=== PATIENT | male | born 1970 | race Asian ===

== ENCOUNTER 2016-08-08 05:58 | Day surgery (SDC) | payer OTHER ==
[2016-08-05 15:07] VITALS: BMI 25.8
[2016-08-08] MEDS ORDERED: LIDOCAINE 1%/EPI 1:100000 (50 ML MULTI DOSE VIAL) ONE (08:41)
[2016-08-08] MEDS ORDERED: MIDAZOLAM HCL 2 MG/2 ML SINGLE DOSE VIAL ONE (09:04)
[2016-08-08] MEDS ORDERED: ROCURONIUM BROMIDE 50 MG/5 ML VIAL ONE (09:04)
[2016-08-08] MEDS ORDERED: PROPOFOL 20 ML ONE (09:04)
[2016-08-08] MEDS ORDERED: LIDOCAINE HCL/PF 2% SDV 5ML VIAL ONE (09:05)
[2016-08-08] MEDS ORDERED: DEXAMETHASONE SOD PHOSPHATE 4 MG/1 ML VIAL ONE (09:26)
[2016-08-08] MEDS ORDERED: ceFAZolin SODIUM 1 GM VIAL ONE (09:35)
[2016-08-08] MEDS ORDERED: NEOSTIGMINE METHYLSULFATE 0.5 MG/ML - 10 ML MDV ONE (10:14)
[2016-08-08] MEDS ORDERED: PHENYLEPHRINE HCL 10 MG/1 ML SINGLE DOSE VIAL ONE (10:14)
[2016-08-08] MEDS ORDERED: GLYCOPYRROLATE 0.2 MG/1 ML VIAL ONE (10:14)
[2016-08-08] MEDS ORDERED: MICROFIBRILLAR COLLAGEN 1 GM EACH ONE (10:15)
--- NOTE | 2016-08-08 10:50 | HP ---
History & Physical Update - History History: No Change - Physical Physical: No Change - Assessment Assessment: No Change - Plan Plan: No Change
--- NOTE | 2016-08-08 10:53 | SURG ---
Surgery Thermal Engineer Note Thermal Engineer: Luis F Carter PA-C Date of Service: 08/08/16 Diagnosis: Thyroglossal duct cyst and forehead mass Procedure: Excision of thyroglossal duct cyst and forehead mass I was present for the entirety of the operative procedure. For further detail, please refer to operative report. Visit type - Case Type Case Type: Scheduled Admission - New patient This patient is new to me today: Yes Date on this admission: 08/12/16
--- NOTE | 2016-08-08 10:53 | OP ---
Operative Note - Note: Operative Date: 08/08/16 Pre-Operative Diagnosis: Thyroglossal duct Cyst & right forehead mass Operation: Excission of thyroglossal duct cyst & forehead mass Post-Operative Diagnosis: Same as Pre-op Surgeon: Jacob Cervantes Architect Naval: Luis F Carter Anesthesiologist/DECAL APPLIER: Jorge Kumar Anesthesia: General Specimens Removed: Thyroglossal duct cyst and forehead mass Estimated Blood Loss (mls): 10 Fluid Volume Replaced (mls): 800 Operative Report Dictated: Yes
[2016-08-08] MEDS ORDERED: ACETAMINOPHEN INJECTION 100 ML IVPB ONE (11:17)
[2016-08-08] MEDS ORDERED: oxyCODONE HCL 5 MG TABLET ONE (13:57)
[2016-08-08 15:16] VITALS: BP 127/88; PULSE 90
--- NOTE | 2016-08-09 07:01 | OP ---
DATE OF OPERATION: 08/08/2016 SURGICAL ATTENDING: Rayne Vigil MD PREOPERATIVE DIAGNOSES: 1. Thyroglossal ductal cyst. 2. Right forehead mass. POSTOPERATIVE DIAGNOSES: 1. Thyroglossal ductal cyst. 2. Right forehead mass. ANESTHESIA: General endotracheal. PROCEDURE: 1. Excision of thyroglossal ductal cyst (cyst trunk) procedure. 2. Right forehead mass excision. 3. Neck ultrasound. DESCRIPTION OF PROCEDURE: The patient was taken into the operating room and placed in a supine position and endotracheally intubated. The eyes were protected. Neck ultrasound was performed showing a large cystic mass at the level of the hyoid bone. The thyroid lobes appeared normal, and there was no lymphadenopathy. The patient was then prepped and draped in the usual sterile fashion. Local anesthesia was administered. A horizontal incision was made in an upper neck skin crease and carried down through subcutaneous tissues and platysma. Subplatysmal flaps were raised superiorly and inferiorly, and flap hooks were placed for exposure. The median raphe was incised and the strap muscles lateralized. The cyst was immediately evident and circumscribed down to the level of the hyoid bone. It was attached to the hyoid bone and also extended under the hyoid bone. The hyoid bone was then clipped with a bone clipper bilaterally, and this was included in the specimen. The cyst was excised proximal to the hyoid bone as well but did not tract significantly up toward the base of the tongue. In this way, the specimen was removed and sent to Pathology. Hemostasis was achieved with electrocautery, and the wound was closed in 3 layers. Dermabond was placed. An elliptical incision was made around the prior scar from the right forehead mass. This was carried down through subcutaneous tissues. The mass was identified, and the submuscular area was circumscribed and removed. Hemostasis was achieved with electrocautery. The wound was closed in 2 layers. Sterile dressings and Dermabond were placed. The patient was then awakened, extubated, and taken to recovery in stable condition. Dr. Vigil, attending surgeon, was present throughout the entire procedure. RAYNE VIGIL M.D. [id number]
[2016-08-12 08:59] VITALS: TEMP 98.5
--- NOTE | 2016-08-12 14:01 | PATH ---
Surgical Pathology Report Patient Name: KANA DALE [facility]. Rec. #: [id number] /Age/Gender: 1970 (Age: 46) / M Account: [id number] Location: [facility] SURGICAL Taken: 08/08/2016 Received: 08/08/2016 Reported: 08/12/2016 Physicians: Jacob Cervantes M.D. Specimen(s) Received A: THYROGLOSSAL DUCT CYST B: RIGHT FOREHEAD MASS Clinical History Thyroglossal duct cyst, right forehead lipoma Final Diagnosis A. THYROGLOSSAL DUCT CYST, EXCISION: BENIGN CYST LINED BY CILIATED COLUMNAR EPITHELIAL CELLS AND SQUAMOUS CELLS CONSISTENT WITH THYROGLOSSAL DUCT CYST. CYST WALL SHOWS AREAS OF ACUTE AND CHRONIC INFLAMMATION WELL FOREIGN BODY REACTION. THE SURROUNDING SOFT TISSUE HAS BENIGN ADIPOSE TISSUE, SKELETAL MUSCLE, BONE, AND CARTILAGE. B. SKIN, RIGHT FOREHEAD, EXCISION: SKIN WITH FOCAL DERMAL FIBROSIS SUGGESTIVE OF SCAR, AND BENIGN ADIPOSE TISSUE WITH ADMIXED FIBROUS TISSUE CONSISTENT WITH FIBROLIPOMA. Comment: Also see [id number]. Electronically Signed Chandler Traore M.D. Gross Description A. Received in formalin labeled "thyroglossal duct cyst," is a 4.0 x 3.0 x 3.0 cm irregular, unoriented portion of red-brown soft tissue. Sectioning reveals an intact cyst containing a lopes liquid material. The specimen displays an attached portion of bone. Side Sawyer sections are submitted in 6 cassettes, with cassettes 2-3 following decalcification. B. Received in formalin labeled "right forehead mass and scar," is a 2.0 x 1.1 x 0.7 cm portion of yellow, lobulated adipose tissue. The specimen is partially surfaced by a 1.3 x 0.3 cm lopes, elliptical portion of skin with a possible scar. Sectioning reveals homogeneous yellow, smooth fat. Side Sawyer sections are submitted in one cassette. 08/08/201608/08/2016
== END 2016-08-08 15:10 | disposition home or self-care (01) ==
LOC: JASU-SURG 05:58
PROVIDERS: ATTEND Surgery
PROC: 0JQ10ZZ Repair Face Subcutaneous Tissue and Fascia, Open Approach (ICD-10-PCS; 2016-08-08)
PROC: 0JB10ZZ Excision of Face Subcutaneous Tissue and Fascia, Open Approach (ICD-10-PCS; 2016-08-08)
PROC: 0WB60ZX Excision of Neck, Open Approach, Diagnostic (ICD-10-PCS; principal; 2016-08-08 09:00)
DX: Q89.2 Congenital malformations of other endocrine glands (principal); D17.0 Benign lipomatous neoplasm of skin and subcutaneous tissue of head, face and neck
CPT/HCPCS: 88304-TC; 88305-TC; 88311-TC; 94760

== ENCOUNTER 2022-05-10 12:12 | Emergency (ER) | payer BC, OTHER ==
[2022-05-10 12:17] VITALS: BMI 21.5
[2022-05-10] MEDS ORDERED: LABETALOL HCL 5 MG/1 ML (100MG/20 ML VIAL) IVPUSH ONE (12:29)
[2022-05-10] MEDS ORDERED: LABETALOL HCL 5 MG/1 ML (100MG/20 ML VIAL) ONE (12:30)
[2022-05-10 12:49] LABS: BASO % 0.7 % (0-2.0); HEMATOCRIT 50.3 % (35.4-49); HEMOGLOBIN 16.9 GM/dL (11.7-16.9); LYMPH % 30.4 % (8-40); MCH 29.7 pg (25.7-33.7); MCHC 33.5 g/dl (32.0-35.9); MEAN CELL VOLUME 88.7 fl (80-96); MEAN PLT VOLUME 9.2 fl (7.5-11.1); MONO % 6.4 % (3.8-10.2); NEUT % 61.5 % (42.8-82.8); PLATELET COUNT 236 10^3/uL (134-434); RBC 5.68 M/mm3 (4.00-5.60); RDW 13.3 % (11.9-15.9); WHITE BLOOD COUNT 6.6 K/mm3 (4.0-10.0)
[2022-05-10 12:56] LABS: PROTHROMBIN TIME (PATIENT) 11.5 SEC (9.7-13.0)
[2022-05-10 12:58] LABS: ACTIVATED PTT 34.1 SECONDS (25.2-36.5)
[2022-05-10 13:06] LABS: CALCIUM 9.6 mg/dL (8.5-10.1)
[2022-05-10 13:07] LABS: ALBUMIN 4.4 g/dl (3.4-5.0); BLOOD UREA NITROGEN 19.8 mg/dL (7-18)
[2022-05-10 13:10] LABS: CREATININE 1.2 mg/dL (0.55-1.3)
[2022-05-10 13:12] LABS: TOT PROT 8.2 g/dl (6.4-8.2)
[2022-05-10 13:15] LABS: N-TERMINAL BNP 55.4 pg/ml (5-125)
[2022-05-10] MEDS ORDERED: ASPIRIN 81 MG CHEWABLE TABLETS PO ONE (13:16)
[2022-05-10] MEDS ORDERED: TICAGRELOR 60 MG TABLET PO ONE (13:17)
[2022-05-10] MEDS ORDERED: HEPARIN NA (PORCINE) 5,000 UNITS/ML 1ML VIAL IVPUSH PRN ×2 (13:17)
[2022-05-10] MEDS ORDERED: TICAGRELOR 90 MG TABLET PO ONE (13:21)
[2022-05-10] MEDS ORDERED: ASPIRIN 81 MG CHEWABLE TABLETS ONE (13:22)
[2022-05-10] MEDS ORDERED: HEPARIN NA (PORCINE) 5,000 UNITS/ML 1ML VIAL IVPUSH ONE (13:23)
[2022-05-10] MEDS ORDERED: HEPARIN - 25,000 UNIT in SODIUM CHLORIDE 495 ML IV SCH (13:30)
[2022-05-10] MEDS ORDERED: HEPARIN NA (PORCINE) 5,000 UNITS/ML 1ML VIAL ONE (13:33)
[2022-05-10] MEDS ORDERED: HEPARIN INFUSION - 25,000 UNITS/500 ML INFUS.BAG IVPB SCH (13:45)
[2022-05-10] MEDS ORDERED: HEPARIN INFUSION - 25,000 UNITS/500 ML INFUS.BAG IVPB ONE (14:02)
[2022-05-10] MEDS ORDERED: SODIUM CHLORIDE 0.9% 500 ML INFUS.BAG IV ONE (14:22)
[2022-05-10 16:13] VITALS: BP 165/103; PULSE 73; RESP 17; TEMP 98.6
== END 2022-05-10 14:01 | disposition short-term general hospital (02) ==
LOC: JER 12:12
PROC: 3E033GC Introduction of Other Therapeutic Substance into Peripheral Vein, Percutaneous Approach (ICD-10-PCS; principal; 2022-05-10)
PROC: 3E033GC Introduction of Other Therapeutic Substance into Peripheral Vein, Percutaneous Approach (ICD-10-PCS; 2022-05-10)
PROC: 3E033GC Introduction of Other Therapeutic Substance into Peripheral Vein, Percutaneous Approach (ICD-10-PCS; 2022-05-10)
PROC: 3E033GC Introduction of Other Therapeutic Substance into Peripheral Vein, Percutaneous Approach (ICD-10-PCS; 2022-05-10)
PROC: 3E033GC Introduction of Other Therapeutic Substance into Peripheral Vein, Percutaneous Approach (ICD-10-PCS; 2022-05-10)
PROC: 3E033GC Introduction of Other Therapeutic Substance into Peripheral Vein, Percutaneous Approach (ICD-10-PCS; 2022-05-10)
DX: R61 Generalized hyperhidrosis (principal); I10 Essential (primary) hypertension; I21.4 Non-ST elevation (NSTEMI) myocardial infarction
CPT/HCPCS: 0241U-QW; 36415; 71275-TC; 74174-TC; 80053; 83880; 84484; 85025; 85610; 85730; 86850; 86900; 86901; 93005; 93010; 99285-25; J1644; Q9967